=== PATIENT | female | born 1980 | race African-American/Black ===

== ENCOUNTER → 2023-12-21 14:56 | Outpatient (REF) | payer OTHER, SELFPAY ==
--- NOTE | 2023-12-21 15:48 | CARDSERVLU ---
Echocardiogram with Lumason completed after protocol screening completed. Allergies verified.
Patent IV site: _new start 1st attempt 24 P RAC____
IV site flushed with 0.9% NaCl pre and post administration.
Diluted bolus method utilized to enhance visualization of ventricular stevenson.
Total volume given: _2.5___ mL
Patient tolerated all procedures well without complications.
== END ==
LOC: RCS 14:56
PROVIDERS: ATTENDING PHYSICIAN Internal Medicine; FAMILY PHYSICIAN Internal Medicine
DX: R06.09 Other forms of dyspnea (principal); R94.31 Abnormal electrocardiogram [ECG] [EKG]; I10 Essential (primary) hypertension; R42 Dizziness and giddiness; E11.59 Type 2 diabetes mellitus with other circulatory complications
CPT/HCPCS: 93306; Q9950

== ENCOUNTER → 2023-12-28 14:08 | Outpatient (REF) | payer OTHER, SELFPAY ==
--- NOTE | 2023-12-28 16:11 | CARDSERVLU ---
Echocardiogram with Lumason completed after protocol screening completed. Allergies verified.
Patent IV site: __RT AC___
IV site flushed with 0.9% NaCl pre and post administration.
Diluted bolus method utilized to enhance visualization of ventricular stevenson.
Total volume given: __5__ mL
Patient tolerated all procedures well without complications.
== END ==
LOC: RCS 14:08
PROVIDERS: ATTENDING PHYSICIAN Internal Medicine; FAMILY PHYSICIAN Internal Medicine
DX: R06.09 Other forms of dyspnea (principal); R42 Dizziness and giddiness; R94.31 Abnormal electrocardiogram [ECG] [EKG]; I10 Essential (primary) hypertension
CPT/HCPCS: 93017; 93350; Q9950